=== PATIENT | female | born 1955 | race Caucasian/White ===

== ENCOUNTER 2024-07-29 07:42 | Inpatient (IN) | payer BC, MEDICARE ==
[2024-07-29] MEDS ORDERED: fentaNYL 50 mcg/mL 1 mL Vial ONE ×4 (07:48→20:27)
[2024-07-29] MEDS ORDERED: Ondansetron PF 4 MG/2 ML Vial ONE ×2 (08:00→17:31)
[2024-07-29 08:33] LABS: #Basophils 0.05 10x3/uL (0.0-0.2); %Basophils 0.3 % (0.0-1.0); %Eosinophils 1.2 % (0.0-10.0); %Lymphocytes 6.9 % (21.0-51.0); Hematocrit 44.5 % (36.0-47.0); Hemoglobin 14.5 g/dL (12.0-16.0); Mean Corpuscular HGB CONC 32.6 g/dL (32.0-36.0); Mean Corpuscular Hemoglobin 31.1 pg (27.0-31.0); Mean Corpuscular Volume 95.5 fL (78.0-98.0); Mean Platelet Volume 9.5 fL (7.4-10.4); Platelet Count 232 10x3/uL (130-400); RBC Distribution Width 13.1 % (11.5-14.5); Red Blood Cell (RBC) Count 4.66 mill/uL (4.20-5.40)
[2024-07-29] MEDS ORDERED: Ketorolac Tromethamine 30 MG (1 mL) VIAL ONE (08:37)
[2024-07-29] MEDS ORDERED: Morphine 2 MG/ML VIAL ONE (08:37)
[2024-07-29] MEDS ORDERED: Dextrose 5% in Water 1,000 ML IV PRN (08:48)
[2024-07-29] MEDS ORDERED: Dextrose 50% Abboject 50 ML SYRINGE SLOW IVP PRN (08:48)
[2024-07-29] MEDS ORDERED: traMADol HCl 50 MG TAB PO PRN (08:48)
[2024-07-29] MEDS ORDERED: Ondansetron ODT 4 MG TAB PO PRN (08:48)
[2024-07-29] MEDS ORDERED: Glucagon 1 MG/ML KIT IM PRN (08:48)
[2024-07-29] MEDS ORDERED: Ondansetron PF 4 MG/2 ML Vial IVP PRN (08:48)
[2024-07-29 08:55] LABS: ALT (SGPT) 12 U/L (8-55); AST (SGOT) 19 U/L (5-34); Albumin 4.1 g/dL (3.4-4.8); Alkaline Phosphatase 88 U/L (40-110); Anion Gap 13 mmol/L (10-20); BUN (Urea Nitrogen) 17 mg/dL (9.8-20.1); Bilirubin, Total 0.4 mg/dL (0.2-1.2); Calc. Creatinine Clearance 0 mL/min (70-130); Calcium 9.6 mg/dL (7.8-10.44); Carbon Dioxide 23 mmol/L (23-31); Chloride 106 mmol/L (98-107); Estimated GFR 83; Globulin 2.7 g/dL (2.4-3.5); Glucose 107 mg/dL (80-115); Lipase 41 U/L (8-78); Potassium 4.3 mmol/L (3.5-5.1); Protein, Total 6.8 g/dL (5.8-8.1); Sodium 138 mmol/L (136-145)
[2024-07-29 09:54] VITALS: BMI 22.1
[2024-07-29 09:58] LABS: PTT 27.9 sec (22.9-36.1); Prothrombin Time 12.6 sec (12.0-14.7)
[2024-07-29] MEDS ORDERED: CEFAZOLIN 2 GM in Sodium Chloride 0.9% 100 ML IVPB SCH (11:00)
[2024-07-29] MEDS ORDERED: FLU (Fluad Triv) TS24-25 (65UP)/MF59C/PF 45 MCG/0.5 ML Syringe IM ONE (12:00)
[2024-07-29] MEDS ORDERED: CEFAZOLIN 2 GM VIAL ONE (13:34)
[2024-07-29] MEDS ORDERED: Sodium Chloride 0.9% 100 ML ONE (13:34)
[2024-07-29] MEDS: TETANUS, DIPHTHERIA TOX,ADULT (TDVAX) 0.5 ML VIAL IM ONE (13:43)
[2024-07-29] MEDS ORDERED: PROPOFOL 20 ML ONE (16:50)
[2024-07-29] MEDS ORDERED: fentaNYL PF 100 MCG/2 ML SYRINGE ONE (16:50)
[2024-07-29] MEDS ORDERED: Lidocaine 1% PF 5 ML VIAL ONE (16:51)
[2024-07-29] MEDS ORDERED: Rocuronium Bromide 10 MG/ML (10ML VIAL) ONE (16:51)
[2024-07-29] MEDS ORDERED: Dexamethasone 20 MG/5 ML VIAL ONE (17:31)
[2024-07-29] MEDS ORDERED: SUGAMMADEX SODIUM 200 MG/2 ML VIAL ONE (17:53)
[2024-07-29] MEDS ORDERED: Labetalol HCl 100 MG/20 ML VIAL ONE (18:18)
[2024-07-29] MEDS ORDERED: HYDROmorphone 0.5 MG/0.5 ML SYRINGE ONE (19:13)
[2024-07-29] MEDS: CEFAZOLIN 2 GM in Sodium Chloride 0.9% 100 ML IVPB SCH (21:46)
[2024-07-30 05:36] LABS: #Basophils Less than 0.03 10x3/uL (0.0-0.2); #Eosinophils Less than 0.03 10x3/uL (0.0-0.7); %Basophils 0.1 % (0.0-1.0); %Lymphocytes 4.4 % (21.0-51.0); %Monocytes 5.6 % (0.0-10.0); %Neutrophils 89.2 % (42.0-75.0); Hematocrit 38.8 % (36.0-47.0); Hemoglobin 12.2 g/dL (12.0-16.0); Mean Corpuscular HGB CONC 31.4 g/dL (32.0-36.0); Mean Corpuscular Hemoglobin 31.1 pg (27.0-31.0); Mean Platelet Volume 9.5 fL (7.4-10.4); Platelet Count 223 10x3/uL (130-400); RBC Distribution Width 13.3 % (11.5-14.5); Red Blood Cell (RBC) Count 3.92 mill/uL (4.20-5.40)
[2024-07-30 05:54] LABS: Anion Gap 13 mmol/L (10-20); BUN (Urea Nitrogen) 13 mg/dL (9.8-20.1); Calc. Creatinine Clearance 67 mL/min (70-130); Calcium 8.5 mg/dL (7.8-10.44); Carbon Dioxide 22 mmol/L (23-31); Chloride 106 mmol/L (98-107); Estimated GFR 82; Glucose 138 mg/dL (80-115); Potassium 4.7 mmol/L (3.5-5.1); Sodium 136 mmol/L (136-145)
[2024-07-30] MEDS: HYDROcodone/Acetaminophen 5/325 mg Tablet PO PRN (11:22)
[2024-07-30] MEDS: Methocarbamol 500 MG TAB PO PRN (13:56)
[2024-07-30] MEDS: Acetaminophen 325 MG TAB PO PRN (20:19)
[2024-07-30] MEDS: Senokot S 8.6-50 MG TAB PO SCH (20:20)
[2024-07-30] MEDS: Enoxaparin 40 MG (0.4 mL) SYRINGE SC SCH (20:20)
[2024-07-31] MEDS: hydrALAZINE 20 MG/ML VIAL SLOW IVP PRN (15:26)
[2024-08-02] MEDS: Lisinopril 20 MG TAB PO SCH (08:52)
[2024-08-02] MEDS: Atorvastatin Calcium 20 MG TAB PO SCH (08:53)
[2024-08-03] MEDS: Morphine 2 MG/ML VIAL SLOW IVP PRN (21:12)
[2024-08-05 17:07] VITALS: BMI 22.1
[2024-08-08] MEDS: HYDROcodone/Acetaminophen 5/325 mg Tablet PO PRN (21:30)
[2024-08-10 05:43] LABS: Hematocrit 35.8 % (36.0-47.0); Hemoglobin 11.6 g/dL (12.0-16.0)
[2024-08-11 07:15] LABS: #Basophils 0.04 10x3/uL (0.0-0.2); %Basophils 0.3 % (0.0-1.0); %Eosinophils 1.4 % (0.0-10.0); %Lymphocytes 7.2 % (21.0-51.0); %Monocytes 8.2 % (0.0-10.0); %Neutrophils 82.2 % (42.0-75.0); Hematocrit 34.2 % (36.0-47.0); Hemoglobin 11.3 g/dL (12.0-16.0); Mean Corpuscular Volume 93.7 fL (78.0-98.0); Mean Platelet Volume 9.2 fL (7.4-10.4); Platelet Count 372 10x3/uL (130-400); Red Blood Cell (RBC) Count 3.65 mill/uL (4.20-5.40)
[2024-08-11 07:38] LABS: Anion Gap 12 mmol/L (10-20); BUN (Urea Nitrogen) 15 mg/dL (9.8-20.1); Calc. Creatinine Clearance 70 mL/min (70-130); Calcium 9.5 mg/dL (7.8-10.44); Carbon Dioxide 27 mmol/L (23-31); Chloride 102 mmol/L (98-107); Estimated GFR 86; Glucose 102 mg/dL (80-115); Magnesium 2.4 mg/dL (1.6-2.6); Phosphorus 2.9 mg/dL (2.3-4.7); Potassium 4.5 mmol/L (3.5-5.1); Sodium 136 mmol/L (136-145)
[2024-08-11 12:15] LABS: Bacteria/HPF 4+ HPF (None Seen); Bilirubin Negative (Negative); Blood, Urine Negative (Negative); CAUTI Indications for Culture Pelvic or flank pain; Clarity Turbid (Clear); Glucose, Urine (Dipstick) Normal (Negative); Ketone, Urine Negative (Negative); Leukocyte 500 Leu/uL (Negative); Nitrite Negative (Negative); Protein, Urine (Dipstick) Negative (Neg-Trace); RBC/HPF 0-3 HPF (0-3); Specific Gravity, Urine 1.004 (1.002-1.036); Squamous Epithelial None Seen HPF (0-3); Urobilinogen Normal mg/dL (Less than 2); WBC/HPF 21-50 HPF (0-3)
[2024-08-11 12:21] LABS: Urine Culture Reflex Yes Yes
[2024-08-11] MEDS: Sulfameth/Trimethoprim DS 800-160mg TAB PO SCH (20:03)
[2024-08-13 07:44] VITALS: BP 145/87; TEMP 98.4
== END 2024-08-13 10:40 | DRG 482 ==
LOC: ERS 07:42 → SURG B 08:53
PROVIDERS: ADMIT Surgery; ATTEND Surgery
PROC: 0QS604Z Reposition Right Upper Femur with Internal Fixation Device, Open Approach (ICD-10-PCS; principal; 2024-07-29)
DX: S72.141A Displaced intertrochanteric fracture of right femur, initial encounter for closed fracture (principal); W18.30XA Fall on same level, unspecified, initial encounter; I10 Essential (primary) hypertension; E78.5 Hyperlipidemia, unspecified; G43.909 Migraine, unspecified, not intractable, without status migrainosus; M19.90 Unspecified osteoarthritis, unspecified site; Z90.49 Acquired absence of other specified parts of digestive tract; Z90.710 Acquired absence of both cervix and uterus; Z79.899 Other long term (current) drug therapy
CPT/HCPCS: 36415; 71045; 72170; 76700; 80048; 80053; 81001; 83690; 83735; 84100; 85014; 85018; 85025; 85610; 85730; 87077; 87086; 87186; 93005; 96374; 96375; C1713; G0390; J0360; J1100; J1170; J1650; J1885; J2272; J2405; J2704; J3010

== ENCOUNTER 2024-10-19 09:14 | Outpatient (CLI) | payer OTHER | END 2024-10-19 09:15 | disposition home or self-care (01) | LOC: BICRAD 09:14 | PROVIDERS: ATTEND Orthopaedic Surgery | DX: S72.141D Displaced intertrochanteric fracture of right femur, subsequent encounter for closed fracture with routine healing (principal) ==